=== PATIENT | female | born 1970 ===

== ENCOUNTER 2020-05-25 09:46 | Inpatient (IN) ==
--- NOTE | 2020-04-13 08:51 | PAT Medication Instructions ---
Medication Instructions Date of Service April 13, 2020 Home Medications Medications acetaminophen [Tylenol Extra Strength] 500 mg PO UD PRN 04/09/20 [History Confirmed 04/09/20] escitalopram oxalate 20 mg PO Q2D 04/09/20 [History Confirmed 04/09/20] iron-vit C-vit [id number] acid [Iron 100 Plus] 1 tab PO UD PRN 04/09/20 [History Confirmed 04/09/20] loperamide [Anti-Diarrheal (loperamide)] 2 mg PO UD PRN 04/09/20 [History Confirmed 04/09/20] metformin 500 mg PO BID 04/09/20 [History Confirmed 04/09/20] omeprazole 20 mg PO UD PRN 04/09/20 [History Confirmed 04/09/20] tramadol 50 mg PO UD PRN 04/09/20 [History Confirmed 04/09/20] Continue as directed escitalopram oxalate 20 mg PO Q2D DO NOT take the morning of surgery iron-vit C-vit [id number] acid [Iron 100 Plus] 1 tab PO UD PRN loperamide [Anti-Diarrheal (loperamide)] 2 mg PO UD PRN metformin 500 mg PO BID Take morning of surgery With a small sip of water, OTHERWISE NOTHING TO EAT OR DRINK AFTER MIDNIGHT: acetaminophen [Tylenol Extra Strength] 500 mg PO UD PRN (okay to take up to 4 hours prior to surgery if needed) omeprazole 20 mg PO UD PRN (if needed) tramadol 50 mg PO UD PRN (okay to take up to 4 hours prior to surgery if needed) Take evening before surgery acetaminophen [Tylenol Extra Strength] 500 mg PO UD PRN (if needed) iron-vit C-vit F44-mmsob acid [Iron 100 Plus] 1 tab PO UD PRN (if needed) loperamide [Anti-Diarrheal (loperamide)] 2 mg PO UD PRN (if needed) metformin 500 mg PO BID omeprazole 20 mg PO UD PRN (if needed) tramadol 50 mg PO UD PRN (if needed) Other Notes If you have any questions please call us at [phone] or [phone] or [phone] or [phone]
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
--- NOTE | 2020-04-15 11:28 | XRay Report ---
XR chest Pre-admission PA/Lat CLINICAL HISTORY: PAT COMPARISON STUDY: No previous studies for comparison. FINDINGS: The bones soft tissues and hemidiaphragms are normal. The cardiomediastinal silhouette is n ormal. The lungs are clear. The pulmonary vasculature is normal. IMPRESSION: Negative chest. ACT 112: Negative or not required by law. The above report was generated using voice recognition software. It may contain grammatical, syntax or spelling errors. Electronically signed by: Donald Wilder M.D. 04/15/2020 11:26 AM
[2020-04-15 12:38] LABS: Appearance Urine Cloudy (Clear); Bacteria Urine Automated 2+ (Negative); Bilirubin Urine Negative (Negative); Blood Urine 2+ (Negative); Color Urine Yellow; Epithelial Cell Urine Auto >30 /lpf (0-5); Glucose Urine UA 3+ (Negative); Ketones Urine Negative (Negative); Leukocyte Esterase Urine 2+ (Negative); Nitrite Urine Negative (Negative); Protein Urine 2+ (Negative); Specific Gravity Urine 1.019 (1.000-1.030); Urobilinogen Urine Negative (Negative); WBC Urine Automated >30 /hpf (0-5)
[2020-04-15 12:47] LABS: Estimated Average Glucose 229 mg/dl; Hemoglobin A1C 9.6 % (4.5-5.6)
[2020-04-15 12:48] LABS: Partial Thromboplastin Time 26.8 Seconds (21.0-31.0)
[2020-04-15 12:55] LABS: Basophils # (auto) 0.05 K/uL (0-0.2); Basophils % (auto) 0.6 %; Eosinophils # (auto) 0.32 K/uL (0-0.5); Eosinophils % (auto) 3.9 %; Hemoglobin 11.3 g/dL (12.0-16.0); Immature Granulocytes # (auto) 0.02 K/uL (0.00-0.02); Immature Granulocytes % (auto) 0.2 %; Lymphocytes % (auto) 17.3 %; Mean Corpuscular Hemoglobin 27.3 pg (25-34); Mean Corpuscular Hgb Conc 32.3 g/dL (32-36); Mean Corpuscular Volume 84.5 fL (80-100); Mean Platelet Volume 9.9 fL (7.4-10.4); Monocytes % (auto) 4.9 %; Neutrophils # (auto) 5.92 K/uL (1.4-6.5); Neutrophils % (auto) 73.1 %; Platelet Count 210 K/uL (130-400); RDW Coefficient of Variation 15.2 % (11.5-14.5); RDW Standard Deviation 46.8 fL (36.4-46.3); Red Blood Count 4.14 M/uL (4.2-5.4); White Blood Count 8.11 K/uL (4.8-10.8)
[2020-04-15 14:15] LABS: BUN Creatinine Ratio 10.1 (10-20); Calcium 10.7 mg/dl (8.5-10.1); Est GFR (African American) 52.6; Est GFR (Non-African American) 45.3; Potassium 5.1 mmol/L (3.5-5.1)
[2020-04-15 14:36] LABS: Beta-Hydroxybutyrate 1.8 mg/dl (0.2-2.81)
--- NOTE | 2020-04-16 06:30 | Electrocardiogram Report ---
Test Reason : Blood Pressure : / mmHG Vent. Rate : 090 BPM Atrial Rate : 090 BPM P-R Int : 160 ms QRS Dur : 074 ms QT Int : 356 ms P-R-T Axes : 058 021 059 degrees QTc Int : 435 ms Normal sinus rhythm Normal ECG No previous ECGs available Confirmed by Bassem Almodovar ([id number]) on 04/16/2020 6:29:27 AM Referred By: [place] Confirmed By:Bassem Almodovar
[~2020-05-25 09:46] MED LIST: ACETAMINOPHEN 500 MG TAB PO SCH; CEFAZOLIN 3000MG 72.5 ML IV SCH; CeleBREX 200 MG CAP PO SCH; GABAPENTIN 900 MG DOSE PO SCH; LR 15ML/HR IV SCH
[2020-05-25] MEDS ORDERED: ePHEDrine sulfate 50 MG/ML AMP IV PRN (10:33)
[2020-05-25] MEDS ORDERED: ATROPINE SULFATE 0.1 MG/ML 10ML SYR IV PRN (10:33)
[2020-05-25] MEDS ORDERED: fentaNYL citrate 100 MCG/2 ML VIAL IV PRN (10:33)
[2020-05-25] MEDS ORDERED: HYDROmorphone INJ 1 MG/ML SYRINGE IV PRN ×2 (10:33→15:04)
[2020-05-25] MEDS ORDERED: ONDANSETRON INJ 2 MG/ML 2 ML VIAL IV PRN ×2 (10:33→15:04)
[2020-05-25] MEDS ORDERED: ROCURONIUM BROMIDE 10 MG/ML 5 ML VIAL IV ONE ×2 (10:34→12:10)
[2020-05-25] MEDS ORDERED: MIDAZOLAM HCL 1 MG/ML 2ML VIAL ONE (10:34)
[2020-05-25] MEDS ORDERED: ONDANSETRON INJ 2 MG/ML 2 ML VIAL ONE (10:34)
[2020-05-25] MEDS ORDERED: fentaNYL citrate 100 MCG/2 ML VIAL ONE ×2 (10:34→13:39)
[2020-05-25] MEDS ORDERED: PROPOFOL IV EMULSION 10 MG/ML 20 ML VIAL IV ONE (10:34)
[2020-05-25] MEDS ORDERED: LIDOCAINE HCL 2% 2 ML VIAL/AMP(20MG/ML) INFIL ONE (10:34)
[2020-05-25] MEDS ORDERED: SCOPOLAMINE 1.5 MG TDSY TD ONE (10:41)
[2020-05-25] MEDS ORDERED: SCOPOLAMINE 1.5 MG TDSY TD STA (10:43)
--- NOTE | 2020-05-25 11:13 | History & Physical Bridge Note ---
Date of Service May 25, 2020 History & Physical Bridge Note I have examined the patient, reviewed the History & Physical and in the interval since the performance of the History & Physical I have noted the following changes of clinical significance: no changes noted
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
[2020-05-25] MEDS ORDERED: EPINEPHrine INJ 1 MG/ML AMP ONE (11:25)
[2020-05-25] MEDS ORDERED: BUPIVACAINE 0.5 % 5 MG/1 ML MPF 30ML VIAL ONE (11:25)
[2020-05-25] MEDS ORDERED: BACITRACIN INJ 50,000 UNIT VIAL ONE (11:26)
[2020-05-25] MEDS ORDERED: FLOSEAL HEMOSTATIC MATRIX 10ML TOP ONE (13:35)
--- NOTE | 2020-05-25 13:44 | Operative Report ---
Post Operative Report Pre & Post Diagnosis Operation Date: 05/25/20 11:15 Pre-Op Diagnosis: Lumbar spinal stenosis with neurogenic claudication Morbid obesity Post-Op Diagnosis: Same Operation Date: 05/28/20 12:25 <No data on this case meets the specified criteria> I identified the patient and participated in the time-out.: Yes Procedure Operation Date: 05/25/20 11:15 Actual Procedures #1 revision decompression with medial facetectomies and foraminotomies L3-4 L4-5 and L5-S1. #2 posterior spinal fusion L4-5 L5-S1. #3 placement posterior instrumentation L4-5 L5-S1. #4 interbody fusion L4-5 L5-S1. #5 placement of peek cage 11 x 26 mm at L4-5 and 12 x 26 mm at L5-S1. #6 placement locally harvested morselized autograft in the posterior lateral gutters. #7 placement infuse collagen sponge combined with master graft in the posterior lateral gutters and ostial amp and interbody space. Surgeon [place], Heel Seam Rubber Gerri Fox Estimated Blood Loss 150 Findings See Below The patient is 5 foot 9 inches tall weighing over 128 kg with a BMI in excess of 41. The patient's body habitus did add significant technical difficulty to the procedure both through positioning and requiring her deepest retractors and longus instruments in order to perform her procedure. This at least 50% increase to the operative time. Specimens None Indications This is a 49-year-old female presents with above-mentioned diagnosis after failing extensive course of nonoperative care is here for the above-mentioned procedure. Description of Procedure Patient was met with identified informed consent obtained. Patient was then ta marylou to the operative suite underwent intubation placed in a prone position the Kennedy table on top of the Dewey frame. All bony prominences were padded eyes inspected to ensure no external pressure placed upon the. This point the lumbar spine was prepped and draped in a normal sterile fashion. Sharp dissection with the assistance of Bovie cautery was performed down to and exposing the lamina transverse processes of L4-L5 and sacral ala bilaterally. From a caudal cephalad fashion a revision complete laminectomy L5 L4 and partial laminectomy of L3 was performed including bilateral medial facetectomies and foraminotomies addressing all stenosis. Pedicle screws were then placed in L4-L5 and S1 levels bilaterally with assistance of fluoroscopy and appropriately sized fredy placed. Believe a trans-foraminal approach on the left complete discectomy of L5-S1 was performed endplates curetted to subcortical bleeding bone and a 12 x 26 mm peek cage filled with osteo-bone graft tapped in position. Then proceeded L4-[address] of a transforaminal approach on the left complete discectomy performed endplates curetted to subcortical bleeding bone and a 10 x 26 mm peek cage filled with osteo-bone graft tapped in position. The rods and locked in final position bilaterally. The transverse processes of L 4 L5 and sacral ala burred to subcortical bleeding bone. Infuse collagen sponge master graft local autograft was placed in the posterior lateral gutters. 15 round MARLEE drain inserted. The incision was then closed with 1 Vicryl in the fascia 2-0 Vicryl subcutaneously and 4 Monocryl for final skin closure. Steri-Strip sterile dressings placed. Patient will continue to PACU stable addition. Please note spinal cord monitoring was utilized that the procedure no changes noted. Lastly Gerri Fox was present at the entire procedure involved in patient positioning complex portions of the surgery and final skin closure. I attest to the content of the Intraoperative Record and any orders documented therein. Any exceptions are noted below.
--- NOTE | 2020-05-25 13:55 | Fluoroscopy Report ---
FL lumbar spine 2-3V CLINICAL HISTORY: L4-S1 DECOMPRESSION AND FUSION COMPARISON STUDY: Lumbar spine MRI May 08, 2019. Lumbar spine radiographs October 01, 2019. FLUOROSCOPY TIME: 29 seconds. FLUOROSCOPIC IMAGES: 2 FINDINGS: Fluoroscopy was provided for L4-L5 and L5-S1 discectomies with interbody spacer placement. Posterior decompression is noted. There are bilateral pedicle screws at the L4, L5 and S1 levels with interconnecting rods. Hardware is intact. IMPRESSION: Fluoroscopy provided for L4-L5 and L5-S1 discectomies with posterior decompression and b ilateral pedicle screw fusion from L4 through S1. ACT 112: Negative or not required by law. Electronically signed by: Sal Luevano M.D. 05/25/2020 1:54 PM
--- NOTE | 2020-05-25 14:45 | Anesthesiology Progress Note ---
Date of Service May 25, 2020 Anesthesia Post Procedure Vital Signs Vital Signs: Temp Pulse Pulse Resp BP BP Pulse Ox 05/25/20 14:35 36.8 C 96 H 16 139/90 97 05/25/20 14:25 100 H 14 173/100 H 99 05/25/20 14:15 92 H 12 156/89 H 96 05/25/20 14:05 36.9 C 105 H 10 L 159/97 H 100 05/25/20 10:56 164/75 H 05/25/20 10:08 36.7 C 95 H 20 184/92 H 96 Pain Intensity Back: Pain Intensity: 3 Transfer of Care Handoff Completed per policy Notes Mental Status: alert / awake / arousable and participated in evaluation Patient Amnestic to Procedure: Yes Nausea / Vomiting: adequately controlled Pain: adequately controlled Airway Patency, RR, SpO2: stable & adequate BP & HR: stable & adequate Hydration State: stable & adequate Anesthetic Complications: no major complications apparent and Pt Satisfied with anesthetic care
[2020-05-25] MEDS ORDERED: MAGNESIUM HYDROXIDE SUSP 30 ML UDC PO PRN (15:04)
[2020-05-25] MEDS ORDERED: TRAMADOL HCL 50 MG TABLET PO PRN (15:04)
[2020-05-25] MEDS ORDERED: CEROVITE ADV FORMULA TAB PO PRN (15:04)
[2020-05-25] MEDS ORDERED: HYDROmorphone INJ 0.5 MG/0.5 ML SYR IV PRN (15:04)
[2020-05-25] MEDS ORDERED: LORazepam 0.5 MG/1 ML VIAL IV PRN (15:04)
[2020-05-25] MEDS ORDERED: ALUMINUM/MAGNESIUM SUSP 30 ML UDC PO PRN (15:04)
[2020-05-25] MEDS ORDERED: DO NOT ADMINISTER PNEUMOCOCCAL VACCINE PRN (15:04)
[2020-05-25] MEDS ORDERED: FAMOTIDINE 20 MG TAB PO PRN (15:04)
[2020-05-25] MEDS ORDERED: NALOXONE HCL 0.4 MG/1 ML VIAL/CARP IV PRN (15:04)
[2020-05-25] MEDS ORDERED: SOD PHOSPHATE/SOD BIPHOSPHATE ENEMA 132 ML BTL PR PRN (15:04)
[2020-05-25] MEDS ORDERED: ONDANSETRON 4 MG OD TAB PO PRN (15:04)
[2020-05-25] MEDS ORDERED: LORazepam 0.5 MG TAB PO PRN (15:04)
[2020-05-25] MEDS ORDERED: PROMETHAZINE HCL 12.5 MG in SODIUM CHLORIDE 0.9% 50 ML IV PRN (15:04)
[2020-05-25] MEDS ORDERED: bisacodyL 10 MG SUPP PR PRN (15:04)
[2020-05-25] MEDS ORDERED: ACETAMINOPHEN 1,000 MG/100 ML VIAL IV PRN (15:04)
[2020-05-25] MEDS ORDERED: PANTOprazole 40 MG TAB PO PRN (15:04)
[2020-05-25] MEDS ORDERED: DO NOT ADMINISTER FLU VACCINE PRN (15:04)
[2020-05-25] MEDS ORDERED: METOCLOPRAMIDE HCL INJ 5 MG/ML 2 ML VIAL IV PRN (15:04)
[2020-05-25] MEDS ORDERED: ACETAMINOPHEN 500 MG TAB PO PRN (15:04)
[2020-05-25] MEDS ORDERED: OXYCODONE HCL IR 5 MG TAB (IMMEDIATE RELEASE) ONE (15:23)
[2020-05-25] MEDS: OXYCODONE HCL IR 5 MG TAB (IMMEDIATE RELEASE) PO PRN (15:24)
[2020-05-25] MEDS: SODIUM CHLORIDE 0.9% 1000ML 1,000 ML IV SCH ×2 (15:24→22:15)
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
[2020-05-25] MEDS ORDERED: PHARMACY GLYCEMIC MGMT CONSULT PRN (15:58)
[2020-05-25] MEDS ORDERED: GLUCOSE 10 TABS/TUBE PO PRN (16:00)
[2020-05-25] MEDS ORDERED: DEXTROSE 50% 50 ML SYRINGE IV PRN (16:00)
[2020-05-25] MEDS ORDERED: GLUCAGON FOR INJ 1 MG VIAL SQ PRN (16:00)
[2020-05-25] MEDS ORDERED: CARBOHYDRATES FOR HYPOGLYCEMIA PO PRN (16:00)
[2020-05-25] MEDS ORDERED: GLUCOSE 40% GEL 15 GM TUBE PO PRN (16:00)
--- NOTE | 2020-05-25 16:11 | Pharmacy Report ---
Glycemic Control Consultation - Date of Service May 25, 2020 - Scope Scope: Glycemic Pharmacist consulted for glycemic control and to write orders per [facility] inpatient glycemic control protocol. - Objective Weight: 128.6 kg Accuchecks BSG (last 24hrs): 05/25/20 05/25/20 10:21 14:07 POC Glucose 235 H 172 H HbA1c: Hemoglobin A1c 9.6 % (4.5-5.6) H 04/15/20 10:54 - Recent Pertinent Medications Outpatient Anti-diabetic Regimen: * Metformin 500 mg PO TID * A1c = 9.6 % 04/15/20 Risk Factors for Insulin Resistance: * Recent Surgery - POD #0 L4-S1 Fusion - Assessment & Plan Assessment & Plan: ASSESSMENT: * Prior surgery cancelled per H&P due to hyperglycemia * No perioperative corticosteroids noted thus far PLAN FOR INPATIENT GLYCEMIC CONTROL: * Holding outpatient oral diabetes medications * Basal insulin * None initially * * Bolus insulin * NovoLog per scale ACHS or Q6hrs while NPO * Goal Range: Low 110 mg/dL - High 140 mg/dL * Correction Factor: 20 mg/dL/unit * Nutritional / Prandial insulin per carb ratio of 1 unit per 6 grams CHO consumed * Please note that the plan above was derived based on current level of insulin resistance and hospital stress. These recommendations are appropriate for inpatient admission only. Plan of care upon discharge will need to be reassessed to avoid potential outpatient hypo/hyperglycemia. Thank you.
[2020-05-25] MEDS: ESCITALOPRAM OXALATE 20 MG TAB PO SCH (16:18)
[2020-05-25] MEDS: CHECK SCOPOLAMINE PATCH PLACEMENT SCH (16:19)
[2020-05-25] MEDS: KETOROLAC TROMETHAMINE 15 MG/ML VIAL IV SCH ×2 (16:19→22:08)
[2020-05-25] MEDS ORDERED: INSULIN ASPART 100 UNITS/ML 3 ML PEN SC SCH (16:30)
[2020-05-25] MEDS ORDERED: INSULIN GLARGINE SOLOSTAR 100 UNITS/ML 3 ML PEN SC SCH (21:30)
[2020-05-25] MEDS: CEFAZOLIN 2000MG 2,000 MG/15 ML SYR IV SCH (22:06)
[2020-05-25] MEDS: DOCUSATE SODIUM/SENNA 50/8.6MG TAB PO SCH (22:08)
[2020-05-25] MEDS: INSULIN ASPART 100 UNITS/ML 3 ML PEN SC SCH (22:11)
[2020-05-26] MEDS: CHECK SCOPOLAMINE PATCH PLACEMENT SCH ×4 (00:24→23:58)
[2020-05-26] MEDS: INSULIN ASPART 100 UNITS/ML 3 ML PEN SC SCH ×6 (00:59→20:43)
[2020-05-26] MEDS: CEFAZOLIN 2000MG 2,000 MG/15 ML SYR IV SCH (04:24)
[2020-05-26] MEDS: KETOROLAC TROMETHAMINE 15 MG/ML VIAL IV SCH ×2 (04:25→09:29)
[2020-05-26] MEDS: SODIUM CHLORIDE 0.9% 1000ML 1,000 ML IV SCH (05:00)
[2020-05-26] MEDS: POLYETHYLENE (MIRALAX) 17 GM PACK PO SCH ×4 (05:00→23:58)
[2020-05-26 06:23] LABS: Basophils # (auto) 0.04 K/uL (0-0.2); Basophils % (auto) 0.5 %; Eosinophils # (auto) 0.32 K/uL (0-0.5); Hematocrit (blood only) 29.7 % (37-47); Hemoglobin 9.3 g/dL (12.0-16.0); Immature Granulocytes # (auto) 0.02 K/uL (0.00-0.02); Immature Granulocytes % (auto) 0.3 %; Lymphocytes # (auto) 1.76 K/uL (1.2-3.4); Lymphocytes % (auto) 22.1 %; Mean Corpuscular Hemoglobin 27.1 pg (25-34); Mean Corpuscular Hgb Conc 31.3 g/dL (32-36); Mean Corpuscular Volume 86.6 fL (80-100); Mean Platelet Volume 9.2 fL (7.4-10.4); Monocytes # (auto) 0.46 K/uL (0.11-0.59); Monocytes % (auto) 5.8 %; Neutrophils # (auto) 5.35 K/uL (1.4-6.5); Neutrophils % (auto) 67.3 %; Platelet Count 179 K/uL (130-400); RDW Coefficient of Variation 15.1 % (11.5-14.5); RDW Standard Deviation 47.5 fL (36.4-46.3); Red Blood Count 3.43 M/uL (4.2-5.4); White Blood Count 7.95 K/uL (4.8-10.8)
[2020-05-26 06:43] LABS: BUN Creatinine Ratio 9.6 (10-20); Calcium 8.1 mg/dl (8.5-10.1); Creatinine Clr Calc Pharmacy 79.8 ml/min; Est GFR (African American) 60.6; Est GFR (Non-African American) 52.3
--- NOTE | 2020-05-26 08:43 | Hospitalist Progress Note ---
Date of Service May 26, 2020 Assessment & Plan (1) Status post lumbar surgery: -pre-operative diagnosis of Lumbar spinal stenosis with neurogenic claudication, Morbid obesity -s/p revision and decompression L3-S1 and fusion L4-S1 by Dr Ny on 05/25/2020 (#1 revision decompression with medial facetectomies and foraminotomies L3-4 L4- 5 and L5-S1. #2 posterior spinal fusion L4-5 L5-S1. #3 placement posterior instrumentation L4-5 L5-S1. #4 interbody fusion L4-5 L5-S1. #5 placement of pe ek cage 11 x 26 mm at L4-5 and 12 x 26 mm at L5-S1. #6 placement locally harvested morselized autograft in the posterior lateral gutters. #7 placement infuse collagen sponge combined with master graft in the posterior lateral gutters and ostial amp and interbody space.) -March 2020 hemoglobin is 11.3 and 05/26/2020 Hemoglobin of 9.3 is generally unremarkable given that patient has had her surgery and continues to have MARLEE drain, no blood transfusion needed at this time, management of MARLEE drain from her back by orthopedic surgery (2) History of anemia: -Continue iron supplement (3) Diabetes mellitus, type II: A1c: 9.6 on 04/12/2020. (Pt reports repeat A1c in 04/2020 was in the 8's) Post op BS -Hold metformin -Glycemic pharmacist on board, appreciate assistance with glycemic management (4) Renal insufficiency: with possible chronic kidney disease -Pre-op Cr: 1.35, GFR: 45 in March 2020 -patient reports she follows with [facility] outpatient clinic for primary care and therefor [facility] hospitalist medicine does not have access to assembler caterpillar spider trends of renal function (There are no updated labs since 2013 with Carli Solis PA-C since 2012) -creatinine on 05/26/2020 is 1.2 and estimated GFR in non- patient is 52.3 -recent available labs suggest some form of chronic kidney disease but this is a non-issue in acute postoperative setting as her renal function is not worse that the pre-op level at this time. will need outpatient follow up (5) Anxiety: -Continue escitalopram DVT Prophylaxis -SCDs per ortho Admission and Anticipated Discharge Date Admission Date: May 25, 2020 Subjective No acute distress. no bowel movements since the surgery. no vomiting. no dizziness. no headaches. no breathing distress. breathing on room air. no chest pain. no palpitations. no dizziness no headache Review of Systems Review of Systems: All systems reviewed & are unremarkable except as noted in Subjective Physical Exam Constitutional: comfortable Eyes: PERRL, conjunctivae normal, anicteric sclerae EOM intact bilaterally ENMT: external ear and nose normal, oropharynx normal Neck: trachea midline, no thyromegaly normal visual inspection Respiratory: normal respiratory effort, lungs clear to auscultation Cardiovascular: Rate/Rhythm: regular rate Gastrointestinal (Abdomen): normal bowel sounds, soft, nontender, no hepatosplenomegaly Musculoskeletal: MARLEE drain to the back Neurologic: PERRL, EOMI, accommodation nl, no face palsy, no dysarthria Psychiatric: A+Ox3, euthymic affect Genitourinary: esteves present and draining the urine Results & Data Results & Data ([facility]) Vital Signs (Past 12 Hours) Vital Signs Temp Pulse Resp BP Pulse Ox 05/26/20 07:24 36.5 C 83 16 151/86 H 98 05/26/20 02:41 36.8 C 81 16 144/84 H 96 05/25/20 23:31 36.7 C 79 16 143/83 H 96
[2020-05-26] MEDS: ACETAMINOPHEN 500 MG TAB PO PRN ×2 (08:51→15:13)
[2020-05-26] MEDS ORDERED: INSULIN GLARGINE SOLOSTAR 100 UNITS/ML 3 ML PEN SC SCH ×2 (09:00→21:00)
--- NOTE | 2020-05-26 09:02 | Pharmacy Report ---
Pharmacy Glycemic Short Note 2 - Date of Service May 26, 2020 - Glycemic Short BSG Results (Last 24 hours): 05/25/20 05/25/20 05/25/20 10:21 14:07 17:00 Glucose POC Glucose 235 H 172 H 197 H 05/25/20 05/26/20 05/26/20 20:11 00:11 04:23 Glucose POC Glucose 212 H 132 H 123 H 05/26/20 05/26/20 05:48 08:13 Glucose 127 H POC Glucose 153 H OUTPATIENT ANTIDIABETIC REGIMEN: * Metformin 500 mg PO TIDM * A1c (04/15/20) - 9.6% ASSESSMENT: * SD is a 49 year old female POD #1 s/p L4-S1 decompression and fusion * No steroids administered intra-operatively * BSGs ranging 132-237 mg/dL yesterday * Patient received 32 units of insulin (25 basal, 7 prandial/correctional) * Fasting BSG this morning of 153 mg/dL - will order scheduled basal * IV dexamethasone 8 mg daily ordered starting tomorrow morning * Will adjust Lantus to 35 units (0.4 unit/kg adjusted body weight) to be given with it PLAN FOR INPATIENT GLYCEMIC CONTROL: * Hold outpatient oral diabetes medications * Consider restarting metformin tomorrow * Basal insulin * Lantus 20 units SQ daily * Lantus scale this evening (0-20 units - see EHR for details) * Bolus insulin * NovoLog per scale ACHS or Q6hrs while NPO * Goal Range: Low 110 mg/dL - High 140 mg/dL * Correction Factor: 20 mg/dL/unit * Nutritional / Prandial insulin per carb ratio of 1 unit per 6 grams CHO consumed PLAN FOR DISCHARGE: * A1c of 9.6% is above goal - A reasonable A1C goal for many non- adults is A1c less than 7% * Suggest titrating metformin up to 2000 mg daily (1000 mg PO BIDM) * Additionally, patient may benefit from once daily basal insulin- will follow insulin needs while inpatient * Support Patient Self-Management * Healthy Lifestyle (diet, exercise, and smoking cessation) * Disease self-management (SMBG) * Prevention of complications (BP, Lipid goals, Immunizations) * Consider outpatient Diabetes Self-Management Education & Support
--- NOTE | 2020-05-26 10:04 | Orthopedic Progress Note ---
Date of Service May 26, 2020 Assessment & Plan (1) Neurogenic claudication due to lumbar spinal stenosis: At this time initiate physical therapy monitor her MARLEE output hopefully discharge home in the next few days. Present on Admission?: Yes Admission and Anticipated Discharge Date Admission Date: May 25, 2020 Subjective Back pain controlled leg pain improved. Physical Exam Physical Exam: Patient appears comfortable. Skin strength testing. Results & Data ([facility]) Vital Signs (Past 12 Hours) Vital Signs Temp Pulse Resp BP Pulse Ox 05/26/20 07:24 36.5 C 83 16 151/86 H 98 05/26/20 02:41 36.8 C 81 16 144/84 H 96 05/25/20 23:31 36.7 C 79 16 143/83 H 96
[2020-05-26] MEDS: OXYCODONE HCL IR 5 MG TAB (IMMEDIATE RELEASE) PO PRN (19:18)
[2020-05-26] MEDS: DOCUSATE SODIUM/SENNA 50/8.6MG TAB PO SCH (20:22)
[2020-05-27] MEDS: OXYCODONE HCL IR 5 MG TAB (IMMEDIATE RELEASE) PO PRN ×2 (03:49→08:21)
[2020-05-27] MEDS: POLYETHYLENE (MIRALAX) 17 GM PACK PO SCH (05:37)
[2020-05-27 07:40] LABS: Basophils # (auto) 0.03 K/uL (0-0.2); Basophils % (auto) 0.3 %; Eosinophils # (auto) 0.45 K/uL (0-0.5); Eosinophils % (auto) 4.5 %; Hematocrit (blood only) 30.7 % (37-47); Hemoglobin 10.2 g/dL (12.0-16.0); Immature Granulocytes # (auto) 0.04 K/uL (0.00-0.02); Immature Granulocytes % (auto) 0.4 %; Lymphocytes # (auto) 1.73 K/uL (1.2-3.4); Lymphocytes % (auto) 17.4 %; Mean Corpuscular Hemoglobin 27.5 pg (25-34); Mean Corpuscular Hgb Conc 33.2 g/dL (32-36); Mean Corpuscular Volume 82.7 fL (80-100); Mean Platelet Volume 8.9 fL (7.4-10.4); Monocytes # (auto) 0.54 K/uL (0.11-0.59); Monocytes % (auto) 5.4 %; Neutrophils # (auto) 7.18 K/uL (1.4-6.5); Platelet Count 215 K/uL (130-400); RDW Coefficient of Variation 14.6 % (11.5-14.5); Red Blood Count 3.71 M/uL (4.2-5.4); White Blood Count 9.97 K/uL (4.8-10.8)
[2020-05-27 08:13] LABS: BUN Creatinine Ratio 10.6 (10-20); Calcium 8.6 mg/dl (8.5-10.1); Creatinine Clr Calc Pharmacy 86.3 ml/min; Est GFR (African American) 66.6; Est GFR (Non-African American) 57.5; Potassium 4.2 mmol/L (3.5-5.1)
[2020-05-27] MEDS: CHECK SCOPOLAMINE PATCH PLACEMENT SCH (08:21)
[2020-05-27] MEDS: ESCITALOPRAM OXALATE 20 MG TAB PO SCH (08:21)
--- NOTE | 2020-05-27 08:29 | Hospitalist Progress Note ---
Date of Service May 27, 2020 Assessment & Plan (1) Status post lumbar surgery: -pre-operative diagnosis of Lumbar spinal stenosis with neurogenic claudication, Morbid obesity -s/p revision and decompression L3-S1 and fusion L4-S1 by Dr Ny on 05/25/2020 (#1 revision decompression with medial facetectomies and foraminotomies L3-4 L4- 5 and L5-S1. #2 posterior spinal fusion L4-5 L5-S1. #3 placement posterior instrumentation L4-5 L5-S1. #4 interbody fusion L4-5 L5-S1. #5 placement of pe ek cage 11 x 26 mm at L4-5 and 12 x 26 mm at L5-S1. #6 placement locally harvested morselized autograft in the posterior lateral gutters. #7 placement infuse collagen sponge combined with master graft in the posterior lateral gutters and ostial amp and interbody space.) -March 2020 hemoglobin is 11.3 and 05/26/2020 Hemoglobin of 9.3 is generally unremarkable given that patient has had her surgery and continues to have MARLEE drain, no blood transfusion needed at this time, management of MARLEE drain from her back by orthopedic surgery -Hgb 10.2 on 05/27/2020 (2) History of anemia: -Continue iron supplement (3) Diabetes mellitus, type II: A1c: 9.6 on 04/12/2020. (Pt reports repeat A1c in 04/2020 was in the 8's) Post op BS -Hold metformin -Glycemic pharmacist on board, appreciate assistance with glycemic management (4) Renal insufficiency: with possible chronic kidney disease -Pre-op Cr: 1.35, GFR: 45 in March 2020 -patient reports she follows with [facility] outpatient clinic for primary care and therefor [facility] affiliated hospitalist medicine does not have access to skilled nursing trends of renal function (There are no updated labs since 2013 from [facility] outpatient records) -creatinine on 05/26/2020 is 1.2 and estimated GFR in non- patient is 52.3 -creatinine on 06/27/2020 is 1.11 and estimated GFR in non- patient 57.5 -recent available labs suggest some form of chronic kidney disease but this is a non-issue in acute postoperative setting as her renal function is not worse that the pre-op level at this time. will need outpatient follow up. Patient denies every hearing any formal diagnosis of chronic kidney disease when in outpatients setting (5) Anxiety: -Continue escitalopram DVT Prophylaxis -SCDs per ortho Admission and Anticipated Discharge Date Admission Date: May 25, 2020 Subjective Continues to have MARLEE drain to the back but not draining much as per patient. she has been off esteves since yesterday. she has been ambulating. no acute back pain. no abdominal pain. no chest pain. on room air. no shortness of breath. no dizziness. no headache Review of Systems Review of Systems: All systems reviewed & are unremarkable except as noted in Subjective Physical Exam Constitutional: comfortable Eyes: PERRL, conjunctivae normal, anicteric sclerae EOM intact bilaterally ENMT: external ear and nose normal, oropharynx normal Neck: trachea midline, no thyromegaly normal visual inspection Respiratory: normal respiratory effort, lungs clear to auscultation Cardiovascular: Rate/Rhythm: regular rate Gastrointestinal (Abdomen): normal bowel sounds, soft, nontender, no hepatosplenomegaly Musculoskeletal: Head/Neck/Chest: normocephalic and head atraumatic MARLEE drain to the back Neurologic: PERRL, EOMI, accommodation nl, no face palsy, no dysarthria Psychiatric: A+Ox3, euthymic affect Results & Data Results & Data ([facility]) Vital Signs (Past 12 Hours) Vital Signs Temp Pulse Resp BP Pulse Ox 05/27/20 07:30 36.8 C 86 17 138/82 97 05/26/20 23:39 37.1 C 90 20 143/80 H 95
[2020-05-27] MEDS: INSULIN ASPART 100 UNITS/ML 3 ML PEN SC SCH (08:56)
[2020-05-27] MEDS ORDERED: INSULIN GLARGINE SOLOSTAR 100 UNITS/ML 3 ML PEN SC SCH (09:00)
[2020-05-27] MEDS ORDERED: DEXAMETHASONE SOD PHOSPHATE 8 MG in SYRINGE 0 ML IV SCH (09:00)
--- NOTE | 2020-05-27 10:19 | Discharge Summary ---
Date of Service May 27, 2020 Admission HPI Per Admitting Provider This is a 49-year-old female presents with chronic persistent back and bilateral leg pain. After failing extensive course of nonoperative care is here for surgical invention. Principal Diagnosis Lumbar spinal stenosis with neurogenic claudication Discharge Data Allergies Allergy/AdvReac Type Severity Reaction Status Date / Time No Known Allergies Allergy Verified 05/25/20 10:15 Consultations 05/25/20 15:04 Consult Case Management - Discharge Planning Routine Consult Hospitalist Routine Procedures Performed Operation Date: 05/25/20 11:15 Actual Procedures p L4-S1 Decompression and Fusion, Interbody at L4-L5, Interbody at L5-S1, Application of BMP, Spinal Cord Monitoring(Not Applicable) - River Ny DO Operation Date: 05/28/20 12:25 <No data on this case meets the specified criteria> Ordered Studies 05/25/20 11:15 FL fluoroscopy <1hr Routine FL lumbar spine 2-3V Routine Hospital Course (1) Neurogenic claudication due to lumbar spinal stenosis: Patient underwent multilevel lumbar decompression fusion tolerated this well was taken to the orthopedic floor postoperatively. Postop day #1 he was up and ambulating she progressed to postop day #2 postop day #3 drain and decreased probably. Excellent strength testing. Subsequently discharged home. Discharge orders and instructions from the chart for further review. Total Time Total Time Spent Total Time Spent (In Minutes): 20 minutes Discharge Plan Discharge Items Patient Disposition: Home - Self-Care Reason For Visit: LUMBAR SPINAL STENOSIS WO NEUROGENIC CLAUDICATION Discharge Diagnosis: lumbar stenosis Activity: As commented below Non-emergency contact: Primary Care Provider Call non-emergency contact if: you have any medication questions Follow-up/Referrals: Carli Solis PA-C [Primary Care Provider] - Diet: Regular Addtl Attending Provider Instructions: ACTIVITY RECOMMENDATIONS: SELF CARE INSTRUCTIONS AFTER THORACIC/LUMBAR FUSIONS 1. You may walk to your tolerance. It is good exercise for your legs and back. Expect some back and intermittent leg aches and pains. 2. You may perform "counter-top" level activities (make a sandwich, suly with a project, etc.). 3. No bending or lifting of more than 10 pounds or back twisting of any nature (roll like a log when turning in bed). 4. You may ride in a car for 20-30 minutes at a time. No driving until after your first visit with your doctor. 5. Frequent changes of position and restricting sitting to 30 minutes at a time will help limit the amount of back spasms and stiffness you may experience. 6. You may discontinue the use of ambulatory aids (cane, crutches, etc.) once your strength and confidence allow. 7. 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 Do not take a tub bath, sit in a hot tub or go into a swimming pool until after your first recheck in the office. SPECIAL CARE INSTRUCTIONS: VERY IMPORTANT TO READ AND REVIEW A. Your surgical incision has been closed with a cosmetic suture under the skin that will dissolve in about 6 weeks. In 14 days, you can use a pair of clean scissors and cut the suture that is left outside of the skin at the ends of your incision. 1. The small skin tapes can be removed 7 days after surgery if they have not fallen off by that point. 2. You may keep the wound open to air as much as possible to promote healing after post-op day number 5 unless told otherwise by your doctor. 3. If you think the wound looks like it is becoming infected (redness or worsening drainage) and/or you are experiencing fever, chill or worsening back pain and muscle spasms, contact the office so that we may evaluate you as soon as possible. B. Complications are uncommon, but please contact us if you have any signs or symptoms of: 1. wound infection (fever higher than 102.5 degrees F, redness, separation of wound, drainage, or increasing pain from the incision) 2. blood clots in legs (pain, swelling, redness and warmth in legs) 3. urinary tract infection (fever higher than 102.5 degrees F, burning upon urination or increased frequency of urination) 4. nerve problems (inability to walk on your toes or heels, numbness, loss of bowel or bladder control) 5. any other symptoms that concern you C. Please call the office at if you have any concerns or questions about your operation or recovery. D. No smoking! Smoking drastically decreases the chance of a solid fusion. E. Do not take any anti-inflammatory medications (Indocin, Advil, Motrin, Aspirin, Naprosyn, etc.) as these may inhibit the chance of a solid fusion. Tylenol is okay to take for pain. MANAGING PAIN AFTER SPINAL SURGERY 1. Narcotic medication is intended for short-term use and will be provided for surgical pain. Surgical pain usually lasts for a period of 4-6 weeks. Narcotic medication includes Percocet, Vicodin, Darvocet, Tylenol #3 or Lortab. 2. Longer-term pain is more appropriately treated with non-narcotic medication such as Tylenol ES. 3. Muscle spasm is not appropriately treated with narcotics. Muscle relaxers such as Soma, Flexeril or Skelaxin can be used along with Tylenol ES. 4. Remember that we all live with some "aches and pains". This is not unusual or uncommon after an injury or as we get older. a. Back pain is expected and may include muscle spasms for 4 to 6 weeks after surgery. The pain should gradually improve. If the pain worsens for no apparent reason, please contact the office. b. Intermittent leg pain may also be experienced and should not be concerned about unless it worsens for no apparent reason. If so, please contact the office. 5. We will provide appropriate medication within the normal guidelines of their prescribed use. We will also be very cautious and aware of potential abuse and extended duration of patients' medication needs. a. Pain medications are for your comfort and to assist with sleep and rest so that the tissue can heal. They are not provided in order to return to normal activity and should not be used through the day. To do so or worsening pain at night can result from ongoing tissue damage and development of tolerance to the prescribed medicine. 6. Please allow 2-3 days to process refills. Prescriptions will not be mailed but must be picked up at the office. FOLLOW UP VISIT: Keep your scheduled follow-up appointment. Any questions, please call the office at . Pending Studies at Discharge: No Stand-Alone Forms: [employer], Smoking Cessation Medications and DC Order Prescriptions: New tramadol 50 mg tablet 50 mg PO Q6H PRN (Reason: pain, moderate) Qty: 30 RF: 0 oxycodone 5 mg tablet 5 mg PO Q6H PRN (Reason: pain, severe) Qty: 20 RF: 0 Continued metformin 500 mg Tablet 500 mg PO TID RF: 0 tramadol 50 mg Tablet 50 mg PO UD PRN (Reason: Pain) RF: 0 omeprazole 20 mg Capsule,Delayed Release(Dr/Ec) 20 mg PO UD PRN (Reason: Acid Reflux) RF: 0 escitalopram oxalate 20 mg Tablet 20 mg PO Q2D RF: 0 loperamide [Anti-Diarrheal (loperamide)] 2 mg Capsule 2 mg PO UD PRN (Reason: Diarrhea) RF: 0 Iron 100 Plus [id number] Tablet 1 tab PO UD PRN (Reason: ANEMIA) RF: 0 acetaminophen [Tylenol Extra Strength] 500 mg Tablet 500 mg PO UD PRN (Reason: Pain) RF: 0 Discharge Orders: Discharge Order (Routine); Ordered 05/27/20 Ordered By: River Jo/Other Patient Handouts: Long-Term Complications of Diabetes, How to Check Your Blood Sugar, Healthy Meals for Diabetes, Diabetes: The Benefits of Exercise, Diabetes: Living Your Life, Managing Diabetes: The A1C Test Admission Data Admit Date/Time: 05/25/20 14:23 Attending Provider: River Ny Admit Provider: River Ny Primary Care Provider: Carli Solis Other Providers: Gopal Jessica
== END 2020-05-27 11:46 | disposition home or self-care (01) | DRG 454 ==
LOC: ASU 09:46 → 3E 14:23